=== PATIENT | female | born 1950 | race Two or more races ===

== ENCOUNTER → 2024-10-11 | Outpatient (CLI) | payer MEDICARE, SELFPAY ==
--- NOTE | 2024-10-11 10:09 | XR_ITS ---
Examination: Abdomen sonogram, complete Date and time of exam: October 11, 2024, 1018 hours INDICATIONS: Severe right upper abdominal pain beginning 2 days ago. Technique: Multiple real-time grayscale transabdominal sonographic images of the abdomen have been obtained. Findings: Normal gallbladder. Common bile duct 0.9 cm no stones Pancreatic head 2.7 cm Aorta obscured by bowel gas Liver 18.3 cm benign cysts including 13.9 cyst in the right lobe of the liver 4.3 cyst in the left lobe of the liver Fatty infiltration Normal hepatopedal portal venous flow Patent IVC Right kidney 10.0 cm cortex 1.7 cm 3.7 cm midpole cyst Left kidney 11.7 cm renal cortex 1.9 cm Moderate renal parenchymal scar formation Spleen 7.9 cm IMPRESSION: Normal gallbladder Benign liver cysts Benign right renal cyst. Moderate renal parenchymal scar formation
== END | disposition home or self-care (01) ==
LOC: CDIM 10:02
PROVIDERS: PCP Family Medicine; Referring Provider Family Medicine; Visit Provider Family Medicine
DX: K76.89 Other specified diseases of liver (principal); N28.1 Cyst of kidney, acquired; N28.89 Other specified disorders of kidney and ureter
CPT/HCPCS: 76700

== ENCOUNTER 2024-10-12 21:17 | Emergency (ER) | payer MEDICARE, SELFPAY ==
[2024-10-12 21:20] VITALS: BP 144/73; PULSE 97; RESP 18; TEMP 36.9; O2SAT 96; BMI 26.4
--- NOTE | 2024-10-12 21:48 | EDRME_ITS ---
Rapid Medical Screening Exam [facility] Arrival date/time: 10/12/24 21:17 This is a 74-year-old female that comes into the emergency room with complaints of right upper quadrant abdominal pain that started 4 days ago. Patient was seen by her primary doctor Dr. Calvo and recently had an ultrasound yesterday. Patient states that Dr. Calvo thought she might have gallstones but the ultrasound was negative per Dr. Calvo. Patient was told to come to the emergency room if her symptoms worsen. Patient also complains of nausea no vomiting no diarrhea. Patient denies fever. Patient reports urine feeling hat coming out and that is new that started today. Patient denies any other urinary symptoms. Patient has a history of rheumatoid arthritis. I have greeted and performed a focused initial assessment of this patient. Initial appropriate labs ordered at this time. A comprehensive ED assessment and evaluation of the patient and analysis of all test and completion of medical decision making process will be conducted by additional ED provider. Chief Complaint: Abdominal Pain Time Seen by Provider: 10/12/24 21:23 Vital signs: Vital Signs Temperature 98.5 F 10/12/24 21:20 Pulse Rate 97 10/12/24 21:20 Respiratory Rate 18 10/12/24 21:20 Blood Pressure 144/73 H 10/12/24 21:20 Pulse Oximetry (%) 96 10/12/24 21:20 Oxygen Delivery Method Room Air 10/12/24 21:20
[2024-10-12 22:23] VITALS: BP 148/77; PULSE 81; RESP 18; TEMP 36.9; O2SAT 96
[2024-10-12 22:23] LABS: Basophils # (Auto) 0.0 Thou/mm3 (0.0-0.2); Basophils % (Auto) 0 % (0-2.5); Eosinophils # (Auto) 0.0 Thou/mm3 (0.0-0.5); Eosinophils % (Auto) 1 % (0-10); Hematocrit 36.9 % (36.0-46.0); Hemoglobin 12.9 g/dL (12.0-16.0); Immature Granulocytes Auto 0.02 Thou/mm3 (0.00-0.00); Lymphocytes # (Auto) 1.3 Thou/mm3 (1.0-4.8); Lymphocytes % (Auto) 16 % (10-50); Mean Corpuscular HGB Conc 35.0 g/dl (31.0-37.0); Mean Corpuscular Hemoglobin 30.6 pg (25.0-35.0); Mean Corpuscular Volume 87 fL (80-100); Monocytes # (Auto) 0.8 Thou/mm3 (0.0-0.8); Monocytes % (Auto) 10 % (0-12); Neutrophils # (Auto) 5.9 Thou/mm3 (1.8-7.7); Neutrophils % (Auto) 73 % (37-80); Nucleated Red Blood Cell # 0.00 Thou/mm3 (0.00-0.00); Nucleated Red Blood Cell % 0 /100 WBC (0); Platelet Count 262 Thou/mm3 (140-440); RDW Standard Deviation 43.6 fL (36.4-46.3); Red Blood Count 4.22 Miln/mm3 (4.00-5.20); White Blood Count 8.2 Thou/mm3 (3.6-11.0)
[2024-10-12 22:25] LABS: Collection Type, Urine Voided
[2024-10-12 22:32] LABS: Bilirubin,Urine Negative (Negative); Blood,Urine Trace (Negative); Clarity,Urine Clear (Clear/Hazy); Color,Urine Lt-Yellow (Lt Yel-Yel); Culture Indicated,Urine Not Indicated; Glucose, Urine Negative (Negative); Ketones,Urine Trace (Negative); Leukocyte Esterase,Urine Negative (Negative); Nitrite,Urine Negative (Negative); PH,Urine 6.5 (5.0-7.0); Protein,Urine Negative (Neg - Trace); RBC,Urine 3 /hpf (0-3); Specific Gravity,Urine 1.007 (1.001-1.035); Squamous Epithelial Cell,Urine 1 /hpf (0-5); Urobilinogen,Urine Negative mg/dL (0.0-1.0); WBC,Urine 1 /hpf (0-5)
--- NOTE | 2024-10-12 22:42 | XR_ITS ---
Examination: CT abdomen with intravenous contrast CT pelvis with intravenous contrast 2-D coronal reconstructions 2-D sagittal reconstructions Date and time of exam:October 13, 2024, 0027 hrs., Comparison May 28, 2009. Indications: Right upper abdominal pain beginning 4 days ago.. CTDI: vol (mGy) 16.47. DLP: (mGycm) 710. Technique: Multiple axial sections of the abdomen and pelvis have been obtained. 64 slice high-resolution scanner used. 3 mm axial sections have been obtained, post intravenous injection 60 cc [id number]-[id number]. 2-D sagittal, coronal reconstructions obtained. Low dose protocols were performed. One or more of the following dose reduction techniques were used; automated exposure control, adjustment of the mA and/or KV according to patient size, use of iterative reconstruction technique. Findings: Liver cysts, the largest in the right lobe O centimeters No definite gallstones The common bile duct is enlarged, 10 mm. No pancreatic mass. Lateral 3.6 cm right renal cyst Abdominal aortic calcification no aneurysmal dilatation. No pericecal inflammatory change Diverticula in the sigmoid colon with mild diffuse thickening of the sigmoid colon although no obvious diverticulitis Urinary bladder intact Moderate osteopenia Impression: Enlarged common bile duct, recommend repeat hepatobiliary sonography to exclude common bile duct stones No CT findings of bowel obstruction or diverticulitis
[2024-10-12 22:52] LABS: Alanine Aminotransferase < 7 U/L (10-49); Albumin, Serum 4.6 gm/dL (3.4-4.8); Albumin/Globulin Ratio 1.8 (1.2-2.2); Alkaline Phosphatase 74 U/L (46-116); Anion Gap 9 (7-16); Aspartate Amino Transferase 15 U/L (0-34); BUN/Creatinine Ratio 10 Ratio (12-20); Bilirubin,Total 1.1 mg/dL (0.3-1.2); Blood Urea Nitrogen 6 mg/dL (9-23); Calcium 10.2 mg/dL (8.3-10.6); Calcium (Corrected) 10.2 mg/dL (8.5-10.1); Carbon Dioxide 24.9 mMol/L (20.0-31.0); Chloride 95 mMol/L (98-107); Creatinine (Component) 0.6 mg/dL (0.6-1.3); Estimated Creatinine Clearance 70.2 mL/min (>60); Globulin 2.5 gm/dL (2.3-3.5); Glucose 117 mg/dL (74-106); Lipase 28 U/L (12-53); Osmolality,Calculated 257 (275-295); Potassium 3.6 mMol/L (3.4-5.1); Sodium 129 mMol/L (136-145); Total Protein 7.1 gm/dL (5.7-8.2); eGFR > 60 See Note
--- NOTE | 2024-10-12 22:55 | PD.EDABDPN ---
ED Abdominal Pain RME/HPI General Chief Complaint: Abdominal Pain Stated complaint: RUQ ABD PAIN Time seen by provider: 10/12/24 21:23 Arrival date/time: 10/12/24 21:17 RME / HPI RME / HPI narrative: 10/12/24 21:17 This is a 74-year-old female that comes into the emergency room with complaints of right upper quadrant abdominal pain that started 4 days ago. Patient was seen by her primary doctor Dr. Calvo and recently had an ultrasound yesterday. Patient states that Dr. Calvo thought she might have gallstones but the ultrasound was negative per Dr. Calvo. Patient was told to come to the emergency room if her symptoms worsen. Patient also complains of nausea no vomiting no diarrhea. Patient denies fever. Patient reports urine feeling hat coming out and that is new that started today. Patient denies any other urinary symptoms. Patient has a history of rheumatoid arthritis. I have greeted and performed a focused initial assessment of this patient. Initial appropriate labs ordered at this time. A comprehensive ED assessment and evaluation of the patient and analysis of all test and completion of medical decision making process will be conducted by additional ED provider. DR. DEVLIN MAIN ED EVALUATION: 74 y/o female with history of RA and Clostridium dificille presents to ED c/o RUQ abdominal pain x 4 days. Denies cough, vomiting, back pain or recent fall. Patient reports diarrhea due to laxative. Patient's gall bladder US from yesterday was negative. Patient manages RA with Xeljanz, but admits to not taking it for the last 2 days suspecting it may be causing constipation. No other concerns or complaints expressed at this time. Related Data Previous Rx's ?Medication ?Instructions ?Recorded doxycycline hyclate 100 mg capsule 100 mg PO BID 7 days #14 caps 10/13/24 Allergies Allergy/AdvReac Type Severity Reaction Status Date / Time pseudoephedrine (From Allergy Palpitation Verified 10/12/24 21:27 Sudafed) s Review of Systems Review of Systems Systems Reviewed: All systems reviewed, normal except as documented Past Medical History Past Medical History NEUROLOGIC: Positive Neurological Disorders and Migraine CARDIAC: Positive Cardiac Disorders and Cardiac Arrhythmia (tachycardia) HEMATOLOGIC: Positive Blood Disorders and Anemia OTHER HISTORY: Positive Chicken Pox and Clostridium Difficile Family History FAMILY HISTORY: Positive Family Cardiac Disorders (father,brother), Family Gastrointestinal Problems, Family Cancer and Family Surgery Surgical History SURGICAL: Positive Hysterectomy and Tubal Ligation Social History SMOKING STATUS: Current every day smoker ED Exam Narrative Physical exam: Generally patient is alert and in no obvious distress heart regular rate and rhythm lungs good auscultation equal bilaterally abdomen soft bowel sounds present nondistended right upper quadrant abdominal tenderness without rebound or Donis sign. The tenderness seems to be just below the costal margin on the right. Musculoskeletal exam showed no costovertebral angle tenderness Course Quality Measures none Orders Category Date Time Status CT Screening NOW Care 10/12/24 22:[address] abdomen pelvis w con Stat Exams 10/12/24 22:42 Taken CBC Stat Lab 10/12/24 22:07 Completed Comprehensive Metabolic Panel Stat Lab 10/12/24 22:07 Completed Lipase Stat Lab 10/12/24 22:07 Completed Urinalysis, C/S if Indicated Stat Lab 10/12/24 21:55 Completed Morphine Inj Med 10/12/24 23:31 Discontinued 4 mg IVP X1 ONE Vital Signs Vital signs: Vital Signs Temperature 98.5 F 10/12/24 21:20 Pulse Rate 97 10/12/24 21:20 Respiratory Rate 18 10/12/24 21:20 Blood Pressure 144/73 H 10/12/24 21:20 Pulse Oximetry (%) 96 10/12/24 21:20 Oxygen Delivery Method Room Air 10/12/24 21:20 Abdominal Pain MDM MDM Narrative MDM Narrative:: Scribe Attestation: Arianna Aguiar am scribing for and in the presence of Dr. Devlin. Provider Notation: Although this document has been carefully reviewed, there may still be some phonetic and other typographical errors. These errors are purely grammatical due to imperfections in the software program and should not be construed in any way to compromise the substance of the patient's medical care during this visit. Yesterday the patient had a gallbladder ultrasound with the report in the computer showing a 9 mm common bile duct without gallstones and without stones within the common bile duct. Patient's LFTs are normal. There is no leukocytosis. CT scan done of the abdomen and pelvis with IV contrast tonight showed the possibility of bilateral lower lobe pneumonia however the patient has not had a cough. There are hypodense liver lesions on the right and left lobes of the liver with the largest 1 on the right side. Patient knows about these and actually had a biopsy of these years ago that showed no evidence of cancer. I added on valley fever test. I will treat the patient for possible pneumonia with doxycycline. Patient may take Tylenol and ibuprofen for pain. At this time and is unsure what is causing the patient's acute right upper quadrant abdominal pain. She does have appropriate outpatient follow-up. Patient data External records reviewed:: [facility] previous records (No prior ED records available for review.) Clinical information provided by:: patient Social determinants that could affect healthcare access:: none Patient has the following chronic illnesses:: Migraine, Cardiac Arrhythmia, Anemia How is presenting disease/condition affected by chronic disease/condition?: exacerbated by Evaluation data The following diagnostics were reviewed and interpreted by me:: lab results and radiology exam(s) Lab and/or radiology exams considered but not ordered:: None Interpretation Summary: RADIOLOGY Abdomen/Pelvis CT: Pending official radiology report. Medications / Prescriptions Medications or Prescriptions considered but not ordered:: None Medication administrations:: Medication Administration History Discontinued Medications Morphine Sulfate (Morphine Sulf Inj 10 Mg/Ml Vial) 4 mg IVP X1 ONE Stop: 10/12/24 23:32 Last Admin: 10/12/24 23:54 Dose: 4 mg Documented By: BUDDY See above if any. Consultations Consultation(s) initiated? (list below): No Diagnosis Differential diagnosis abdominal pain: abdominal pain, acute appendicitis, calculus of kidney, constipation, diverticulitis, endometriosis, gastroenteritis, pancreatitis and small bowel obstruction Most likely diagnosis given after review of the tests above:: None Admission Indicated Admission indicated?: not indicated Admission Request Was there a request for admission?: No Disposition Plan Disposition Plan: Discharge Discharge Attestation Discharge Attestation: The patient and all family members were given an opportunity to ask questions and understood the discharge instructions. Discharge instructions specifically effects, indications for sooner follow up or return to the emergency department, and the expected course of current diagnosis. Patient condition: Stable Discharge Plan Plan Patient Disposition: HOME (Self Care) Prescriptions/Referrals Prescriptions/Med Rec: New doxycycline hyclate 100 mg capsule 100 mg PO BID 7 Days Qty: 14 0RF Referrals: Eric Calvo MD [Primary Care Provider] - In 1 week Problem List Clinical Impression: Abdominal pain, Pneumonia, Hepatic cyst Patient/Caregiver Discharge Instructions Print Language: Tuval[place] Stand Alone Forms: Vanessa Award Info., Patient Portal Info Letter
[2024-10-12] MEDS: MORPHINE SULF INJ 10 MG/ML VIAL 4 MG IVP (23:54)
[2024-10-12 23:59] VITALS: BP 140/72; PULSE 90; RESP 20; TEMP 36.8; O2SAT 96
--- NOTE | 2024-10-13 01:51 | PRELIM_ITS ---
CT scan of the abdomen and pelvis with intravenous contrast (axial sections with sagittal and coronal reformats) October 13, 2024 0027 hours Clinical History: Abdominal pain. Comparison: None. Findings: Bilateral lower lobes consolidation. The gallbladder, pancreas, spleen, and adrenals are unremarkable. Small right renal simple cyst. No hydronephrosis. Thickening of the sigmoid colon without peripheral fat stranding. Diverticulosis of the colon. Dilated CBD measuring up to 1.0 cm. Hypodense in the right liver lobe measures 13.3 cm. Hypodense lesion in the left liver lobe measures 4.8 cm. No evidence of bowel obstruction. No evidence of appendicitis. There is no mesenteric or retroperitoneal adenopathy. The urinary bladder is unremarkable. There is no free fluid or free air. Degenerative changes of the imaged portions of the spine. Chronic multilevel disc disease. No acute fractures. Impression: 1. Bilateral lower lobes pneumonia. 2. Mild sigmoiditis. 3. Hypodense liver lesions, correlation with MRI for characterization is recommended. 4. Dilated CBD, further evaluation to exclude choledocholithiasis should be considered. Report Electronically Signed By: Jerson Ibarra 10/13/2024 1:50:58 AM [EST]
[2024-10-13 02:51] VITALS: PULSE 88; RESP 19; TEMP 37; O2SAT 94
[2024-10-13 14:54] LABS: Cocci Serology, IgM Negative (Negative)
[2024-10-15 11:24] LABS: Cocci Serology, IgG Negative (Negative)
== END 2024-10-13 02:53 | disposition home or self-care (01) ==
PROVIDERS: Nurse Practitioner Family; Emergency Provider Emergency Medicine; PCP Family Medicine
DX: J18.9 Pneumonia, unspecified organism (principal); K76.89 Other specified diseases of liver; F17.200 Nicotine dependence, unspecified, uncomplicated
CPT/HCPCS: 36415; 74177; 80053; 81001; 83690; 85025; 86331; 86635; 96374; 99283; A4649; J2270; Q9967

== ENCOUNTER → 2024-10-17 | Outpatient (CLI) | payer MEDICARE, SELFPAY ==
[2024-10-17 13:04] LABS: Basophils # (Auto) 0.0 Thou/mm3 (0.0-0.2); Basophils % (Auto) 1 % (0-2.5); Eosinophils # (Auto) 0.0 Thou/mm3 (0.0-0.5); Eosinophils % (Auto) 0 % (0-10); Hematocrit 36.9 % (36.0-46.0); Hemoglobin 12.5 g/dL (12.0-16.0); Immature Granulocytes Auto 0.01 Thou/mm3 (0.00-0.00); Lymphocytes # (Auto) 1.2 Thou/mm3 (1.0-4.8); Lymphocytes % (Auto) 20 % (10-50); Mean Corpuscular HGB Conc 33.9 g/dl (31.0-37.0); Mean Corpuscular Hemoglobin 30.3 pg (25.0-35.0); Mean Corpuscular Volume 90 fL (80-100); Monocytes # (Auto) 0.7 Thou/mm3 (0.0-0.8); Monocytes % (Auto) 11 % (0-12); Neutrophils # (Auto) 4.1 Thou/mm3 (1.8-7.7); Neutrophils % (Auto) 68 % (37-80); Nucleated Red Blood Cell # 0.00 Thou/mm3 (0.00-0.00); Nucleated Red Blood Cell % 0 /100 WBC (0); Platelet Count 300 Thou/mm3 (140-440); RDW Standard Deviation 44.9 fL (36.4-46.3); Red Blood Count 4.12 Miln/mm3 (4.00-5.20); White Blood Count 6.0 Thou/mm3 (3.6-11.0)
[2024-10-17 13:15] LABS: Glucose Estimated Average 123 mg/dL (80-131); Hemoglobin A1C 5.9 % Hgb (4.8-6.0)
[2024-10-17 13:21] LABS: Vitamin D 25 Hydroxy Total 34.9 ng/mL (7.3-40.2)
[2024-10-17 13:30] LABS: Alanine Aminotransferase 9 U/L (10-49); Albumin, Serum 4.4 gm/dL (3.4-4.8); Albumin/Globulin Ratio 1.8 (1.2-2.2); Alkaline Phosphatase 69 U/L (46-116); Anion Gap 11 (7-16); Aspartate Amino Transferase 16 U/L (0-34); BUN/Creatinine Ratio 11 Ratio (12-20); Bilirubin,Total 0.5 mg/dL (0.3-1.2); Blood Urea Nitrogen 8 mg/dL (9-23); C-Reactive Protein 0.9 mg/dL (0.0-0.9); Calcium 9.9 mg/dL (8.3-10.6); Calcium (Corrected) 9.9 mg/dL (8.5-10.1); Carbon Dioxide 22.7 mMol/L (20.0-31.0); Cardiac Risk Estimate 3.1 RATIO (3.7-5.6); Chloride 101 mMol/L (98-107); Cholesterol 159 mg/dL (132-200); Creatinine (Component) 0.7 mg/dL (0.6-1.3); Free T4 (Free Thyroxine) 1.08 ng/dL (0.89-1.76); Globulin 2.5 gm/dL (2.3-3.5); Glucose 97 mg/dL (74-106); HDL Cholesterol 52 mg/dL (40-60); LDL Cholesterol,Calculated 88 mg/dL (0-130); Osmolality,Calculated 268 (275-295); Potassium 4.1 mMol/L (3.4-5.1); Sodium 135 mMol/L (136-145); Thyroid Stimulating Hormone 3.32 uIU/mL (0.55-4.78); Total Protein 6.9 gm/dL (5.7-8.2); Triglycerides 97 mg/dL (30-150); eGFR > 60 See Note
[2024-10-17 14:51] LABS: Sed Rate (ESR) 40 mm/hr (0-30)
== END | disposition home or self-care (01) ==
LOC: COPL 11:09
PROVIDERS: PCP Family Medicine; Referring Provider Internal Medicine; Visit Provider Internal Medicine
DX: E55.9 Vitamin D deficiency, unspecified (principal); M05.79 Rheumatoid arthritis with rheumatoid factor of multiple sites without organ or systems involvement; M06.09 Rheumatoid arthritis without rheumatoid factor, multiple sites; M25.532 Pain in left wrist; M25.561 Pain in right knee; M25.562 Pain in left knee; M50.30 Other cervical disc degeneration, unspecified cervical region; M54.50 Low back pain, unspecified; M65.341 Trigger finger, right ring finger; M81.0 Age-related osteoporosis without current pathological fracture; R20.2 Paresthesia of skin; R20.8 Other disturbances of skin sensation; R53.1 Weakness; R53.83 Other fatigue; Z13.820 Encounter for screening for osteoporosis; Z72.0 Tobacco use; Z78.0 Asymptomatic menopausal state; Z79.83 Long term (current) use of bisphosphonates; Z79.899 Other long term (current) drug therapy
CPT/HCPCS: 36415; 80053; 80061; 82306; 83036; 84439; 84443; 85025; 85652; 86140

== ENCOUNTER 2024-11-14 12:02 | Outpatient (RCR) | payer MEDICARE, SELFPAY ==
--- NOTE | 2024-11-14 12:30 | XR_ITS ---
Examination: DEQUAN, hepatobiliary radioisotope scan . Date and time of exam: November 14, 2024, 0802 hours INDICATIONS: Right upper quadrant abdominal pain beginning 2 months ago with burping constipation Technique: 5.8 mCi of 99M Hepatolite administered. Serial imaging then obtained from immediate through 60 minutes.. Findings: Proton deficits in the liver consistent with the liver cysts described on the CT abdomen study October 13, 2024 Gallbladder activity Common bile duct activity but no small bowel activity Impression: No small bowel activity Consider MRCP follow-up to exclude stricture in the common bile duct
== END 2024-11-19 23:59 | disposition home or self-care (01) ==
LOC: SNUC 12:02
PROVIDERS: PCP Family Medicine; Referring Provider Family Medicine; Visit Provider Family Medicine
DX: K83.8 Other specified diseases of biliary tract (principal)
CPT/HCPCS: 78227; A9537

== ENCOUNTER → 2024-11-15 | Outpatient (CLI) | payer MEDICARE, SELFPAY ==
--- NOTE | 2024-11-15 10:10 | XR_ITS ---
Examination: PA lateral chest 2 views TECHNIQUE: Upright PA lateral chest 2 views Date and time: November 15, 2024, 1019 hours, comparison 10/22/2015 INDICATIONS: History pneumonia FINDINGS: Mild hyperexpansion. No current pneumonia. Normal heart size Prominent osteopenia IMPRESSION: No pneumonia identified
== END | disposition home or self-care (01) ==
PROVIDERS: PCP Family Medicine; Referring Provider Family Medicine; Visit Provider Family Medicine
DX: J18.9 Pneumonia, unspecified organism (principal)
CPT/HCPCS: 71046

== ENCOUNTER → 2024-12-02 | Outpatient (CLI) | payer MEDICARE, SELFPAY ==
[2024-12-02 08:39] LABS: Basophils # (Auto) 0.0 Thou/mm3 (0.0-0.2); Basophils % (Auto) 1 % (0-2.5); Eosinophils # (Auto) 0.1 Thou/mm3 (0.0-0.5); Eosinophils % (Auto) 1 % (0-10); Hematocrit 38.3 % (36.0-46.0); Hemoglobin 12.4 g/dL (12.0-16.0); Immature Granulocytes Auto 0.02 Thou/mm3 (0.00-0.00); Lymphocytes # (Auto) 1.7 Thou/mm3 (1.0-4.8); Lymphocytes % (Auto) 32 % (10-50); Mean Corpuscular HGB Conc 32.4 g/dl (31.0-37.0); Mean Corpuscular Hemoglobin 29.1 pg (25.0-35.0); Mean Corpuscular Volume 90 fL (80-100); Monocytes # (Auto) 0.7 Thou/mm3 (0.0-0.8); Monocytes % (Auto) 13 % (0-12); Neutrophils # (Auto) 2.8 Thou/mm3 (1.8-7.7); Neutrophils % (Auto) 53 % (37-80); Nucleated Red Blood Cell # 0.00 Thou/mm3 (0.00-0.00); Nucleated Red Blood Cell % 0 /100 WBC (0); Platelet Count 290 Thou/mm3 (140-440); RDW Standard Deviation 46.7 fL (36.4-46.3); Red Blood Count 4.26 Miln/mm3 (4.00-5.20); White Blood Count 5.4 Thou/mm3 (3.6-11.0)
[2024-12-02 09:06] LABS: Alanine Aminotransferase 8 U/L (10-49); Albumin, Serum 4.3 gm/dL (3.4-4.8); Albumin/Globulin Ratio 1.7 (1.2-2.2); Alkaline Phosphatase 69 U/L (46-116); Anion Gap 9 (7-16); Aspartate Amino Transferase 17 U/L (0-34); BUN/Creatinine Ratio 10 Ratio (12-20); Bilirubin,Total 0.5 mg/dL (0.3-1.2); Blood Urea Nitrogen 6 mg/dL (9-23); C-Reactive Protein < 0.5 mg/dL (0.0-0.9); Calcium 9.4 mg/dL (8.3-10.6); Calcium (Corrected) 9.4 mg/dL (8.5-10.1); Carbon Dioxide 25.7 mMol/L (20.0-31.0); Chloride 106 mMol/L (98-107); Creatinine (Component) 0.6 mg/dL (0.6-1.3); Globulin 2.5 gm/dL (2.3-3.5); Glucose 109 mg/dL (74-106); Osmolality,Calculated 279 (275-295); Potassium 4.5 mMol/L (3.4-5.1); Sodium 141 mMol/L (136-145); Total Protein 6.8 gm/dL (5.7-8.2); eGFR > 60 See Note
[2024-12-02 09:20] LABS: Sed Rate (ESR) 25 mm/hr (0-30)
== END | disposition home or self-care (01) ==
LOC: COPL 07:59
PROVIDERS: PCP Family Medicine; Referring Provider Internal Medicine; Visit Provider Internal Medicine
DX: E55.9 Vitamin D deficiency, unspecified (principal); M05.79 Rheumatoid arthritis with rheumatoid factor of multiple sites without organ or systems involvement; M06.09 Rheumatoid arthritis without rheumatoid factor, multiple sites; M25.532 Pain in left wrist; M25.561 Pain in right knee; M25.562 Pain in left knee; M50.30 Other cervical disc degeneration, unspecified cervical region; M54.50 Low back pain, unspecified; M65.341 Trigger finger, right ring finger; M81.0 Age-related osteoporosis without current pathological fracture; R20.2 Paresthesia of skin; R20.8 Other disturbances of skin sensation; R53.1 Weakness; R53.83 Other fatigue; Z13.820 Encounter for screening for osteoporosis; Z72.0 Tobacco use; Z78.0 Asymptomatic menopausal state; Z79.83 Long term (current) use of bisphosphonates; Z79.899 Other long term (current) drug therapy
CPT/HCPCS: 36415; 80053; 85025; 85652; 86140